=== PATIENT | female | born 1940 | race Caucasian/White ===

== ENCOUNTER 2023-05-21 12:02 | Inpatient (IN) | payer MEDICARE, OTHER, SELFPAY ==
[2023-05-21] VITALS (18 sets, daily range): BP systolic 98–176; BP diastolic 49–117; PULSE 66–156; RESP 14–24; TEMP 35.7–36.7; O2SAT 95–98; BMI 27.3; BMI 28.8
--- NOTE | 2023-05-21 12:25 | EDS_ITS ---
HPI History of Present Illness Chief Complaint: Palpitations Detail of Chief Complaint: Shortness of breath Informant: patient Onset/Context/Timing Onset: Weeks Narrative Narrative: Patient presents from PCPs office secondary to new onset A-fib. Patient went to the office today because she needs medication refills and reports that she has had shortness of breath for the past couple of weeks. She denies chest pain or palpitations. She was found to have new onset atrial fibrillation of the office and sent to the emergency room for further evaluation. Paperwork sent from the office indicates that they sent refills of her amlodipine, chlorthalidone, and potassium chloride to the pharmacy for her. Patient is reportedly on Toprol XL 200 mg but does not know if she took it this morning or if she is out of it. [facility] Medical History (Updated 05/21/23 @ 13:[address] Sherin Hawkins MD) Chronic ITP (idiopathic thrombocytopenia) High cholesterol Hypertension Osteoarthritis Secondary polycythemia Allergy/AdvReac Type Severity Reaction Status Date / Time No Known Allergies Allergy Verified 05/21/23 12:03 Social History Smoking Status: Never smoker ROS ROS ED Constitutional Constitutional ED: Denies chills or fever(s) Eyes Eyes: Denies discharge from eye(s) ENT ENT ED: Denies discharge from eye(s), rhinorrhea or sore throat Cardiovascular Cardiovascular: Denies chest pain Respiratory/Chest Respiratory/Chest: Reports dyspnea; Denies cough Gastrointestinal Gastrointestinal: Denies abdominal pain, nausea or vomiting Genitourinary Genitourinary ED: Denies dysuria Musculoskeletal Musculoskeletal: Denies back pain or extremity pain Integumentary Denies Abrasions or rash Neurologic Neurologic: Denies headache(s) or weakness Psychiatric Psychiatric: Denies anxiety or depression Allergic/Immunologic Allergic/Immunologic ED: Denies lip swelling or urticaria EXAM Physical Exam Const Vital Signs: 05/21/23 12:03 05/21/23 12:22 05/21/23 12:22 Temperature 96.2 F L Temperature Source Temporal Pulse Rate 129 H 156 H Respiratory Rate 14 16 Respiratory Effort Normal Blood Pressure 142/100 H 142/85 H Blood Pressure Mean 114 104 Pulse Ox 96 98 Oxygen Delivery Method Room Air Room Air Positive well nourished and well developed General Appearance ED: well developed HEENT Reports moist mucous membranes Eyes EOMs intact bilaterally Neck no lymphadenopathy Chest Wall inspection of chest normal and palpation of chest normal Resp normal respiratory effort and clear to auscultation bilaterally Cardio Rate: tachycardic Rhythm: abnormal rhythm irregularly irregular GI non-tender Extremity Extremity Narrative: 1+ bilateral lower extremity edema, symmetric. Neuro oriented x3 and no sensory deficits noted Motor Exam: strength 5/5 throughout Psych mental status grossly normal Skin no rashes or lesions noted MDM MDM MDM Narrative Medical decision making narrative: Patient placed on supervisor bottle machines. IV line initiated. EKG obtained to evaluate for cardiac arrhythmia/ischemia. Labwork obtained to evaluate for leukocytosis, anemia, and electrolyte derangement. Chest x-ray obtained to evaluate for acute lung pathology, cardiac size, or mediastinal abnormality. Patient given IV Cardizem for rate control. History & Record Review Discussion w/independent historian: Patient and Significant other Lab Data Attestation: I reviewed the patient's lab results. Labs: Laboratory Results - last 24 hr 05/21/23 12:27 WBC 12.6 H RBC 6.24 H Hgb 17.8 H Hct 50.8 H MCV 81.4 MCH 28.5 MCHC 35.0 RDW Std Deviation 41.5 RDW Coeff of Prince 14.2 Plt Count 158 MPV 10.7 Immature Gran % (Auto) 0.700 Neut % (Auto) 71.7 H Lymph % (Auto) 13.2 L [place] % (Auto) 13.0 H Eos % (Auto) 0.6 Baso % (Auto) 0.8 Absolute Neuts (auto) 9.0 H Absolute Lymphs (auto) 1.66 Nucleated RBC % 0 Differential Comment COMMENT Diff Path Review May foll Sodium 132 L Potassium 2.3 L* Chloride 93 L Carbon Dioxide 27.0 Anion Gap 12 BUN 12 Creatinine 1.04 H Estim Creat Clear Calc 31.28 Est GFR (MDRD) Af Amer 65 Est GFR (MDRD) Non-Af 54 L BUN/Creatinine Ratio 11.5 Glucose 139 H Calcium 10.0 Troponin I High Sens 27 B-Natriuretic Peptide 139.5 H Radiography Chest X-Ray - ED: 1 View, Read by ED Physician and Chronic Changes Diagnostic Testing: Clinical Impression(s) from Imaging Studies Chest X-Ray 05/21/23 12:26 IMPRESSION: No radiographic evidence of acute cardiopulmonary disease. Electronically Signed: Conner Bailey MD at 13:23 EST , EKG Initial EKG: Attestation: I personally reviewed and interpreted this EKG as follows: Interpretation: Atrial Fibrillation (A-fib RVR with ventricular rate of 175. Anterior precordial leads reveal slight ST depression.) Follow-up EKG: Attestation: I personally reviewed and interpreted this EKG as follows: Interpretation: Atrial Fibrillation (A-fib RVR with ventricular rate of 117. ST depression in the anterior precordial leads is still present, however improved with rate control.) Treatment and Re-Evaluation :: CBC was a white count 12.6 with a hemoglobin of 17.8. Patient has a history of secondary polycythemia. Platelet count is 158,000. Chemistry studies reveal a sodium of 132 with a potassium of 2.3. Troponin is normal at 27 with a BNP of 139. Portable chest x-ray per my interpretation reveals chronic changes with no focal infiltrate. After initial 10 mg of IV Cardizem heart rate improved to around 100. As I am talking to patient about her test results heart rate is increasing again to the 120s to 140s. She will be given a second dose of Cardizem as well as p.o. potassium replacement. I will speak with hospitalist regarding admission. Patient will be given a dose of p.o. Eliquis for anticoagulation. Discharge Plan Triage Chief Complaint: Palpitations ED Provider: Sherin Hawkins Dx/Rx/DC Orders Clinical Impression: Atrial fibrillation, new onset, Atrial fibrillation with rapid ventricular response, Hypokalemia Disposition Disposition: Acute Care [facility]
--- NOTE | 2023-05-21 12:26 | RAD_ITS ---
EXAM: XR CHEST, 1 VIEW CLINICAL INDICATION: palpitations TECHNIQUE: Frontal view of the chest. COMPARISON: No relevant prior studies available. FINDINGS: LUNGS AND PLEURAL SPACES: Unremarkable. No consolidation or edema. No pneumothorax. No effusion. HEART: Unremarkable. Cardiac silhouette not enlarged. MEDIASTINUM: Central airways and mediastinal contour are unremarkable. BONES/JOINTS: Unremarkable. No acute fracture. SOFT TISSUES: Unremarkable. RAD/Chest 1 View (Portable) IMPRESSION: No radiographic evidence of acute cardiopulmonary disease. Electronically Signed: Conner Bailey MD at 13:23 EST ,
[2023-05-21] MEDS: dilTIAZem 25 MG/5 ML Vial 10 MG IV BOLUS ×2 (12:32→13:57)
[2023-05-21 12:54] LABS: Absolute Lymphocyte Count 1.66 X10^3/uL (0.83-4.51); Basophil% 0.8 % (0-1); Eosinophil# 0.07 X10^3/uL; Eosinophils% 0.6 % (0-5); Hematocrit 50.8 % (37-47); Hemoglobin 17.8 g/dL (12.0-15.0); Lymphocyte # 1.66 X10^3/ul (0.83-4.51); Lymphocyte % 13.2 % (19-41); Mean Corpuscular Hgb 28.5 pg (27.0-32.0); Mean Corpuscular Volume 81.4 fL (81-99); Mean Platelet Vol. 10.7 fl (6.2-12.0); Monocyte# 1.64 X10^3/uL; NRBC Flagged by Analyzer 0 % (0-5); Neutrophil # 9.03 X10^3/uL (2.7-7.7); Neutrophil % 71.7 % (47-70); POSITIVE DIFFERENTIAL YES; Platelet Count 158 K/mm3 (150-450); RBC Distribution Width CV 14.2 % (11.6-14.6); RBC Distribution Width SD 41.5 fl (35.1-43.9); Red Blood Count 6.24 M/mm3 (4.2-5.4); White Blood Count 12.6 K/mm3 (4.4-11.0)
[2023-05-21 13:03] LABS: Differential Indicated SCAN CRITERIA MET
[2023-05-21 13:16] LABS: Anion Gap 12 (5-15); BUN 12 mg/dL (7-18); BUN/Creat Ratio 11.5 RATIO (10-20); Chloride 93 mmol/L (98-107); Creatinine, Serum 1.04 mg/dL (0.55-1.02); EST Glomerular Filtration Rate 54 mL/min (>60); Est Glom Filt Rate - Afr Amer 65 mL/min (>60); Estimated Creatinine Clearance 31.28 ml/min; Glucose 139 mg/dL (74-106); Potassium 2.3 mmol/L (3.5-5.1); Sodium Level 132 mmol/L (136-145); Troponin-I HS 27 pg/mL (3.0-54.0)
[2023-05-21 13:24] LABS: BNP,B-Type NATRIURETIC PEPTIDE 139.5 pg/mL (0-100)
[2023-05-21] MEDS: Potassium Chloride Oral Tablet 20 MEQ 40 MEQ PO (13:57)
[2023-05-21] MEDS: APIXABAN 5 MG TABLET PO ×2 (13:57→20:44)
[2023-05-21] MEDS: Diltiazem 125 MG in Dextrose 5%-Water (100mL Bag) 100 ML CONT INF (14:27)
--- NOTE | 2023-05-21 15:14 | PCM.HP.STD ---
HPI - General General Date of Admission: 05/21/23 Date of Service: 05/21/23 Chief Complaint: SOB HPI Narrative PILAR AMOS, is a 83F history of hypertension unclear compliance with medications presented to [facility] 05/21/2023 at the urging of her PCP for A-fib with RVR. She presented to her PCP today just for medication refills but then reported she has been short of breath for 2 weeks, EKG in the office revealed heart rate of 170s which is new and patient sent to ED. In ED potassium was low at 2.3 and heart rate was still in RVR, given Cardizem x2, unclear if patient has been taking her metoprolol succinate 200 mg daily as she was unsure. Due to heart rates persistently elevated she was started on Cardizem drip and hospitalist contacted for admission. Patient accompanied with at bedside however patient and are poor historians and patient reluctant to engage. She has been out of 1 or more medications for at least a couple days but inconsistent in how long she has been out in which when she is out of so it is unclear if she took her metoprolol though said that she did. May have had some shortness of breath off and on for the past couple weeks and said then though that it would last minutes at a time, denied any palpitations or feeling her heart racing fast, denied any cough, denied any chest pain. Patient denied any other complaints and has no present complaints at this time. did report she is had worsening memory over time but had no other specific concerns. [facility] Medical History (Updated 05/21/23 @ 13:[address] Sherin Hawkins MD) Chronic ITP (idiopathic thrombocytopenia) High cholesterol Hypertension Osteoarthritis Secondary polycythemia Home Medications amlodipine 2.5 mg tablet 2.5 mg PO DAILY BLOOD PRESSURE 05/21/23 [History Last Taken Unknown] chlorthalidone 25 mg tablet 25 mg PO DAILY BLOOD PRESSURE 05/21/23 [History Last Taken Unknown] metoprolol succinate 200 mg tablet,extended release 24 hr 200 mg PO DAILY BLOOD PRESSURE 05/21/23 [History Last Taken Unknown] potassium chloride 10 mEq tablet,extended release 10 meq PO DAILY SUPPLEMENT 05/21/23 [History Last Taken Unknown] Allergy/AdvReac Type Severity Reaction Status Date / Time No Known Allergies Allergy Verified 05/21/23 12:03 Social History Smoking Status: Never smoker ROS ROS Narrative General: Denies fever/chills HENT: Denies headache, denies stuffy nose, denies sore throat EYES: Denies changes in vision Resp: Denies cough, did have some intermittent shortness of breath Cardiac: Denies chest pain GI: Denies abdominal pain, denies changes in bowel, denies nausea/vomiting : Denies changes in urination Extremity: Denies swelling MSK: Denies weakness Neuro: Denies any numbness/tingling Heme: Denies any bleeding or bruising Skin: Denies rashes Psychiatric: No complaints voiced Vital Signs Vital Signs Vital Signs: 05/21/23 12:03 05/21/23 12:22 05/21/23 12:22 Temperature 96.2 F L Temperature Source Temporal Pulse Rate 129 H 156 H Respiratory Rate 14 16 Respiratory Effort Normal Blood Pressure 142/100 H 142/85 H Blood Pressure Mean 114 104 Pulse Ox 96 98 Oxygen Delivery Method Room Air Room Air 05/21/23 14:08 05/21/23 14:27 Temperature Temperature Source Pulse Rate 109 H 108 H Respiratory Rate 19 H 16 Respiratory Effort Blood Pressure 116/91 H 132/114 H Blood Pressure Mean 99 120 Pulse Ox Oxygen Delivery Method Room Air Weight Weight: 67.7 kg Body Mass Index (BMI) 27.3 Physical Exam Narrative General: Alert, oriented, no apparent distress HEENT: Atraumatic, normocephalic Eyes: Anicteric, normal conjunctiva, extraocular movements grossly intact Neck: Supple Respiratory: Clear to auscultation bilaterally, normal respiratory effort Cardiovascular: Low-grade tachycardia on Cardizem drip, irregularly irregular GI: Soft, nontender, nondistended Extremities: No edema Musculoskeletal: Moving all extremities Neuro: No overt focal neurological deficits Skin: No rashes appreciated Psych: Cooperative Results Lab / Micro Data 05/21/23 12:27 05/21/23 12:27 Labs: Laboratory Results - last 24 hr 05/21/23 12:27: WBC 12.6 H, RBC 6.24 H, Hgb 17.8 H, Hct 50.8 H, MCV 81.4, MCH 28.5, MCHC 35.0, RDW Std Deviation 41.5, RDW Coeff of Prince 14.2, Plt Count 158, MPV 10.7, Immature Gran % (Auto) 0.700, Neut % (Auto) 71.7 H, Lymph % (Auto) 13.2 L, [place] % (Auto) 13.0 H, Eos % (Auto) 0.6, Baso % (Auto) 0.8, Absolute Neuts (auto) 9.0 H, Absolute Lymphs (auto) 1.66, Nucleated RBC % 0, Differential Comment COMMENT, Diff Path Review May foll, Sodium 132 L, Potassium 2.3 L*, Chloride 93 L, Carbon Dioxide 27.0, Anion Gap 12, BUN 12, Creatinine 1.04 H, Estim Creat Clear Calc 31.28, Est GFR (MDRD) Af Amer 65, Est GFR (MDRD) Non-Af 54 L, BUN/Creatinine Ratio 11.5, Glucose 139 H, Calcium 10.0, Troponin I High Sens 27, B-Natriuretic Peptide 139.5 H Imagaing Radiology Impression Chest X-Ray 05/21/23 12:26 IMPRESSION: No radiographic evidence of acute cardiopulmonary disease. Electronically Signed: Conner Bailey MD at 13:23 EST , Assessment & Plan Assessment/Plan (1) Atrial fibrillation with rapid ventricular response: (2) Hypokalemia: PLAN: Plan #Afib w/ rvr -Given cardizem x2 in ED with heart rate increasing again after initially responding -Will place on cardizem gtt -Eliquis started in ED -Will order echo -Replace electrolytes -Unclear if patient has been taking her metoprolol as she and report that she has been however then said she has been out of a couple of her medicines but was unable to tell me exactly which ones and account of this changed each time I asked the question -We will monitor heart rate and Cardizem, will resume home metoprolol as I do suspect there is a compliance component to this, may need addition of p.o. Cardizem pending response to treatment, replacement of electrolytes, and echocardiogram -Given elevated hemoglobin may also have undiagnosed sleep apnea and may need outpatient sleep study #HTN -Continue metoprolol -On Cardizem drip at present, holding home amlodipine -Given electrolyte derangements holding home chlorthalidone #hypokalemia -Given 40meq in ED -Holding chlorthalidone -Given K was 2.3 will additionally give further IV replacement and recheck #hyponatremia -Unclear chronicity, hold chlorthalidone -Will recheck BMP d/t recheck of potassium #reny vs ckd IIIa -Cr 1.04, unclear baseline -Supportive care #DVT ppx: Candis Garner MD Time spent in the patient's overall evaluation,decision-making process, review of diagnostic data, adjustment of management, discussion with other providers, nursing nursing and ancillary staff involved in patient's care documentation, 55 minutes Charges/Coding Visit Charges Inpatient E&M: 88856 Init Hosp L2
--- NOTE | 2023-05-21 15:48 | ECHOD_ITS ---
Reason For Study: ATRIAL FIBRILLATION Procedure This was a 2D Doppler, Color Flow transthoracic echocardiogram. Exam performed portable in patient room. Left Ventricle Mild concentric left ventricular hypertrophy. Normal LV size. The left ventricular ejection fraction is 65 %. Unable to assess diastolic dysfunction due to arrhythmia. Right Ventricle Normal right ventricle. Atria The left atrium is moderately enlarged. The right atrium is mildly enlarged. Mitral Valve There is Moderate focal posterior mitral annular calcification. Mild (1+) mitral valve insufficiency. Tricuspid Valve Moderate (2+) tricuspid valve insufficiency. Right ventricular systolic pressure estimated to be 41 mmHg. Aortic Valve Aortic sclerosis, no stenosis. Mild (1+) aortic valve insufficiency. Pulmonic Valve The pulmonic valve is not well visualized. Trivial pulmonic valve insufficiency. Great Vessels Normal sized aortic root. Pericardium/Pleural No pericardial effusion. MMode/2D Measurements & Calculations LVIDd: 3.7 cm IVSd: 1.3 cm LVOT diam: 1.9 cm LVIDs: 2.5 cm LVPWd: 0.91 cm LVOT area: 2.7 cm2 RVDd: 2.6 cm FS: 33.8 % Ao root diam: 3.5 cm LAV(MOD-bp): 40.4 ml LVAd ap4: 14.3 cm2 LAV(MOD-bp) Indexed: 24.0 ml/m2 LVLd ap4: 5.7 cm LAV(MOD-sp2): 46.3 ml EDV(MOD-sp4): 29.8 ml LAV(MOD-sp4): 35.8 ml EDV(sp4-el): 30.4 ml LVAs ap4: 7.9 cm2 LVLs ap4: 5.1 cm ESV(MOD-sp4): 10.7 ml ESV(sp4-el): 10.5 ml EF(MOD-sp4): 64.0 % EF(sp4-el): 65.4 % LVAd ap2: 14.8 cm2 SV(MOD-sp4): 19.1 ml SV(MOD-sp2): 21.2 ml LVLd ap2: 5.7 cm EDV(MOD-sp2): 32.3 ml EDV(sp2-el): 32.5 ml LVAs ap2: 8.1 cm2 LVLs ap2: 5.2 cm ESV(MOD-sp2): 11.0 ml ESV(sp2-el): 10.5 ml EF(MOD-sp2): 65.8 % SV(sp4-el): 19.9 ml LA dimension(2D): 3.7 cm LA A4 area: 15.3 cm2 RA A4 area: 13.2 cm2 TAPSE: 1.9 cm Time Measurements MV dec time: 0.17 sec Doppler Measurements & Calculations MV E max venkata: 110.0 cm/sec Lat Peak E' Venkata: 8.4 cm/sec Med Peak E' Venkata: 8.2 cm/sec E/E' lat: 13.1 E/E' med: 13.3 Ao V2 max: 144.8 cm/sec LV V1 max: 82.0 cm/sec SV(LVOT): 46.3 ml Ao max P.4 mmHg LV V1 max P.7 mmHg Ao V2 mean: 101.4 cm/sec LV V1 mean P.4 mmHg Ao mean P.6 mmHg LV V1 mean: 54.4 cm/sec Ao V2 VTI: 27.3 cm LV V1 VTI: 16.9 cm AV (velocity ratio): 0.62 SUSIE(I,D): 1.7 cm2 SUSIE(V,D): 1.5 cm2 PA V2 max: 65.5 cm/sec TR max venkata: 256.4 cm/sec PA max PG (full): 0.54 mmHg TR max P.3 mmHg ECHO/Echo Complete Interpretation Summary Mild concentric left ventricular hypertrophy. The left ventricular ejection fraction is 65 %. The left atrium is moderately enlarged. Mild (1+) mitral valve insufficiency. Moderate (2+) tricuspid valve insufficiency. Right ventricular systolic pressure estimated to be 41 mmHg. Aortic sclerosis, no stenosis. Mild (1+) aortic valve insufficiency. Ordering Physician: Jacque Garner Performed By: Kassandra Chase RDCS
[2023-05-21 16:16] LABS: Magnesium 2.1 mg/dL (1.6-2.6)
[2023-05-21] MEDS: Metoprolol(XL)Succ 200 MG Tablet PO (16:52)
[2023-05-21] MEDS: Potassium Chloride 10mEq/100mL 10 MEQ/100 ML IV.SOLN. 100 MEQ IV BOLUS ×2 (16:52→18:02)
[2023-05-21] MEDS: 0.9% Normal Saline (250mL Bag) 250 ML 15 ML IV (16:53)
[2023-05-21 21:20] LABS: Anion Gap 7 (5-15); BUN 13 mg/dL (7-18); BUN/Creat Ratio 12.5 RATIO (10-20); Calcium,Total 9.6 mg/dL (8.5-10.1); Chloride 96 mmol/L (98-107); Creatinine, Serum 1.04 mg/dL (0.55-1.02); EST Glomerular Filtration Rate 54 mL/min (>60); Est Glom Filt Rate - Afr Amer 65 mL/min (>60); Estimated Creatinine Clearance 31.28 ml/min; Glucose 137 mg/dL (74-106); Sodium Level 134 mmol/L (136-145)
[2023-05-22] VITALS (24 sets, daily range): BP systolic 78–151; BP diastolic 45–137; PULSE 58–80; RESP 15–21; TEMP 36.4–36.6; O2SAT 93–98; BMI 28.9
[2023-05-22] MEDS: Potassium Chloride Oral Tablet 20 MEQ 40 MEQ PO ×2 (00:02→01:55)
[2023-05-22] MEDS: Diltiazem 125 MG in Dextrose 5%-Water (100mL Bag) 100 ML 10 MG CONT INF (01:56)
[2023-05-22 07:30] LABS: Absolute Lymphocyte Count 2.36 X10^3/uL (0.83-4.51); Eosinophil# 0.22 X10^3/uL; Eosinophils% 2.1 % (0-5); Hematocrit 45.9 % (37-47); Hemoglobin 15.5 g/dL (12.0-15.0); Lymphocyte # 2.36 X10^3/ul (0.83-4.51); Lymphocyte % 22.7 % (19-41); Mean Corp Hgb Conc 33.8 g/dL (32-36); Mean Corpuscular Hgb 28.3 pg (27.0-32.0); Mean Corpuscular Volume 83.8 fL (81-99); Mean Platelet Vol. 10.5 fl (6.2-12.0); Monocyte# 1.59 X10^3/uL; Monocyte% 15.3 % (0-10); NRBC Flagged by Analyzer 0 % (0-5); Neutrophil # 6.04 X10^3/uL (2.7-7.7); Neutrophil % 58.2 % (47-70); POSITIVE DIFFERENTIAL YES; Platelet Count 141 K/mm3 (150-450); RBC Distribution Width CV 14.3 % (11.6-14.6); RBC Distribution Width SD 43.6 fl (35.1-43.9); Red Blood Count 5.48 M/mm3 (4.2-5.4); White Blood Count 10.4 K/mm3 (4.4-11.0)
[2023-05-22 07:33] LABS: Differential Indicated SCAN CRITERIA MET
[2023-05-22 08:08] LABS: Anion Gap 6 (5-15); BUN 14 mg/dL (7-18); BUN/Creat Ratio 15.7 RATIO (10-20); Calcium,Total 9.1 mg/dL (8.5-10.1); Chloride 101 mmol/L (98-107); Cholesterol 154 mg/dL (200); Creatinine, Serum 0.89 mg/dL (0.55-1.02); EST Glomerular Filtration Rate 64 mL/min (>60); Est Glom Filt Rate - Afr Amer 77 mL/min (>60); Estimated Creatinine Clearance 36.55 ml/min; Glucose 118 mg/dL (74-106); High Density Lipoprotein 32 mg/dL; Magnesium 2.2 mg/dL (1.6-2.6); Potassium 3.5 mmol/L (3.5-5.1); Sodium Level 135 mmol/L (136-145); Thyroid Stim Hormone (TSH) 2.02 uIU/mL (0.358-3.74); Triglycerides 210 mg/dL; Very Low Density Lipoprotein 42 mg/dL (5-40)
[2023-05-22] MEDS: APIXABAN 5 MG TABLET PO ×2 (10:45→20:58)
--- NOTE | 2023-05-22 10:56 | PN.HOSP_ITS ---
Subjective Subjective Doing well, denies any chest pain. Had her echo this morning. Currently she is still in A-fib but is rate controlled in the 70s Objective Data Objective Data Vital Signs: Vital Signs Temp Pulse Resp BP Pulse Ox O2 Del Method 97.6 F L 67 18 95/59 L 98 Room Air 05/22/23 07:41 05/22/23 07:41 05/22/23 07:41 05/22/23 07:41 05/22/23 07:41 05/22/23 07:48 Oxygen Delivery Method Room Air Weight: 158 lb 4.67 oz Body Mass Index (BMI) 28.9 Intake & Output: Intake and Output for Last 24 Hours 05/21/23 05/22/23 05/23/23 03:59 03:59 03:59 Intake Total 818.66 / 828.66 34.67 / 34.67 Balance 818.66 / 828.66 34.67 / 34.67 Lab / Micro Data 05/22/23 06:55 05/22/23 06:55 Labs: Laboratory Results - last 24 hr 05/21/23 12:27: WBC 12.6 H, RBC 6.24 H, Hgb 17.8 H, Hct 50.8 H, MCV 81.4, MCH 28.5, MCHC 35.0, RDW Std Deviation 41.5, RDW Coeff of Prince 14.2, Plt Count 158, MPV 10.7, Immature Gran % (Auto) 0.700, Neut % (Auto) 71.7 H, Lymph % (Auto) 13.2 L, [place] % (Auto) 13.0 H, Eos % (Auto) 0.6, Baso % (Auto) 0.8, Absolute Neuts (auto) 9.0 H, Absolute Lymphs (auto) 1.66, Nucleated RBC % 0, Differential Comment COMMENT, Diff Path Review October foll, Sodium 132 L, Potassium 2.3 L*, Chloride 93 L, Carbon Dioxide 27.0, Anion Gap 12, BUN 12, Creatinine 1.04 H, Estim Creat Clear Calc 31.28, Est GFR (MDRD) Af Amer 65, Est GFR (MDRD) Non-Af 54 L, BUN/Creatinine Ratio 11.5, Glucose 139 H, Calcium 10.0, Magnesium 2.1, Troponin I High Sens 27, B-Natriuretic Peptide 139.5 H 11/21/23 20:40: Sodium 134 L, Potassium 3.0 L, Chloride 96 L, Carbon Dioxide 31.0, Anion Gap 7, BUN 13, Creatinine 1.04 H, Estim Creat Clear Calc 31.28, Est GFR (MDRD) Af Amer 65, Est GFR (MDRD) Non-Af 54 L, BUN/Creatinine Ratio 12.5, Glucose 137 H, Calcium 9.6 05/22/23 06:55: WBC 10.4, RBC 5.48 H, Hgb 15.5 H, Hct 45.9, MCV 83.8, MCH 28.3, MCHC 33.8, RDW Std Deviation 43.6, RDW Coeff of [place] 14.3, Plt Count 141 L, MPV 10.5, Immature Gran % (Auto) 0.700, Neut % (Auto) 58.2, Lymph % (Auto) 22.7, [place] % (Auto) 15.3 H, Eos % (Auto) 2.1, Baso % (Auto) 1.0, Absolute Neuts (auto) 6.0, Absolute Lymphs (auto) 2.36, Nucleated RBC % 0, Differential Comment COMMENT, Sodium 135 L, Potassium 3.5, Chloride 101, Carbon Dioxide 28.0, Anion Gap 6, BUN 14, Creatinine 0.89, Estim Creat Clear Calc 36.55, Est GFR (MDRD) Af Amer 77, Est GFR (MDRD) Non-Af 64, BUN/Creatinine Ratio 15.7, Glucose 118 H, Calcium 9.1, Magnesium 2.2, Triglycerides 210 H, Cholesterol 154, LDL Cholesterol 80, VLDL Cholesterol 42 H, HDL Cholesterol 32 L, TSH 2.02 Radiography Diagnostic Testing: Radiology Impression Chest X-Ray 05/21/23 12:26 IMPRESSION: No radiographic evidence of acute cardiopulmonary disease. Electronically Signed: Conner Bailey MD at 13:23 EST , Physical Exam Narrative General: Alert, Oriented x3, Cooperative, No apparent distress HEENT: Atraumatic, PERRLA, EOMI, Normocephalic Oral: Moist Mucosa Neck: Supple, No JVD Lungs: Diminished, normal air movement, No rhonchi, No wheeze, No rales Cardiovascular: Regular rate, irregular rhythm, Normal S1, Normal S2, No murmurs Abdomen: Soft, Non Tender, Non-Distended, No Hepato-splenomegaly Extremities: No edema, Capillary Refill Less than 3 Seconds Skin: No rashes, No breakdown Musculoskeletal: No Tenderness to Palpation of Joints or Extremities Neurological: Cranial nerves II-XII grossly intact, Motor Exam 5/5 strength throughout, Sensory exam intact to light touch and pain Psych/Mental Status: Normal Affect, Appropriate Assessment & Plan Assessment/Plan (1) Atrial fibrillation with rapid ventricular response: (2) Hypokalemia: PLAN: Plan 1. A-fib with RVR/HTN ? Heart rate is now normal but she is still periodically in A-fib ? Continue with her home metoprolol as well as Cardizem drip ? Currently on Eliquis given her age and her A-fib ? We will consult cardiology as she is rate controlled but still in A-fib rhythm as to whether they would prefer amiodarone versus digoxin ? Echo is pending ? Blood pressures are stable ? She does not have SYMONE or CKD DVT: Eliquis Charges/Coding Visit Charges Inpatient E&M: 07254 Subs Hosp L2
--- NOTE | 2023-05-22 11:10 | CASEMGMT ---
RN ROYA Face to Face with patient for initial transition planning/care coordination assessment. RN CM introduced self and role at [facility]. Patient lying in bed, alert and oriented. Patient willing to participate in assessment and is able to answer all questions appropriately. Care providers, pharmacy, and demographics verified. Patient wishes to discharge home, denies need for home health at this time. Patient states she has no further needs or concerns at this time. CM to follow for discharge planning needs that may arise. PCP: Cris Specialists: none Preferred Pharmacy: [facility] Insurance: [employer] Prescription Benefit: yes Living Will/HPOA: none LNOK: daughter Living Arrangements: Patient lives with in a 2 story home with bed and bath on first floor. Patient states she is independent at home. Transportation: self, DME/HHC: Patient has raised toilet, cane, walker at home. No previous HHC or SNF. Disposition Plan: Patient to discharge home with family support and follow-up plans in place. Suzi ALFARO, RN, CM
[2023-05-22] MEDS: Metoprolol(XL)Succ 200 MG Tablet PO (11:59)
--- NOTE | 2023-05-22 13:41 | PCM.CONS.C ---
Assessment & Plan Assessment/Plan (1) Atrial fibrillation, new onset: PLAN: SwitchVentricular rate controlled with beta-blockers. On diltiazem infusion. To p.o. Agree. Check echocardiogram. Risk of thromboembolism with atrial fibrillation discussed with the patient, her and daughter. Recommended chronic oral anticoagulation. Risks and benefit explained. Particularly emphasis was given to the risk of bleeding with falls. They understand these and agreed to start on anticoagulation. (2) Hypertension: PLAN: Beta-blockers, diltiazem. Monitor. PLAN: Plan If the heart rate was controlled in the morning with p.o. diltiazem and beta-blockers, then may discharge home. Further follow-up as outpatient. HPI Consult Data Date of Consult: 05/22/23 HPI Narrative Reason for Consultation: Atrial fibrillation HPI Narrative: This lady has past medical history significant for hypertension. She was referred from her primary care physician's office where she was discovered to have an irregular heartbeat. ECG showed atrial fibrillation with rapid ventricular response. Patient denies any previous cardiac history. Denies any palpitations. Denies any chest pains or shortness of breath. No orthopnea or PND. No ankle edema. Patient denies any bleeding disorders. According to her, she fell in her basement about 2 months ago. No history of intracranial bleed. [facility] Medical History (Updated 05/22/23 @ 13:[address] Jordan Peterson MD) Atrial fibrillation Chronic ITP (idiopathic thrombocytopenia) High cholesterol Hypertension Non-smoker Osteoarthritis Secondary polycythemia Home Medications amlodipine 2.5 mg tablet 2.5 mg PO DAILY BLOOD PRESSURE 05/21/23 [History Last Taken Unknown] chlorthalidone 25 mg tablet 25 mg PO DAILY BLOOD PRESSURE 05/21/23 [History Last Taken Unknown] metoprolol succinate 200 mg tablet,extended release 24 hr 200 mg PO DAILY BLOOD PRESSURE 05/21/23 [History Last Taken Unknown] potassium chloride 10 mEq tablet,extended release 10 meq PO DAILY SUPPLEMENT 05/21/23 [History Last Taken Unknown] Allergy/AdvReac Type Severity Reaction Status Date / Time No Known Allergies Allergy Verified 05/21/23 12:03 Social History Smoking Status: Never smoker Physical Exam Narrative Comfortable. No apparent distress. Heart sounds 1 and 2 noted. Irregularly irregular. Chest clear to auscultation bilaterally. Alert oriented. No ankle edema noted. Risk Stratification Risk Stratification Applicable: No Objective Data Vital Signs: Vital Signs Temp Pulse Resp BP Pulse Ox O2 Del Method 97.8 F 75 18 126/111 H 96 Room Air 05/22/23 12:05 05/22/23 13:00 05/22/23 13:00 05/22/23 13:00 05/22/23 13:00 05/22/23 13:00 Oxygen Delivery Method Room Air Weight: 158 lb 4.67 oz Body Mass Index (BMI) 28.9 Intake & Output: Intake and Output for Last 24 Hours 05/20/23 05/21/23 05/22/23 23:59 23:59 23:59 Intake Total 778.66 / 788.66 721.26 / 721.26 Balance 778.66 / 788.66 721.26 / 721.26 Lab / Micro Data 05/22/23 06:55 05/22/23 06:55 Labs: Laboratory Results - last 24 hr 05/21/23 12:27: Magnesium 2.1 05/21/23 20:40: Sodium 134 L, Potassium 3.0 L, Chloride 96 L, Carbon Dioxide 31.0, Anion Gap 7, BUN 13, Creatinine 1.04 H, Estim Creat Clear Calc 31.28, Est GFR (MDRD) Af Amer 65, Est GFR (MDRD) Non-Af 54 L, BUN/Creatinine Ratio 12.5, Glucose 137 H, Calcium 9.6 05/22/23 06:55: WBC 10.4, RBC 5.48 H, Hgb 15.5 H, Hct 45.9, MCV 83.8, MCH 28.3, MCHC 33.8, RDW Std Deviation 43.6, RDW Coeff of [place] 14.3, Plt Count 141 L, MPV 10.5, Immature Gran % (Auto) 0.700, Neut % (Auto) 58.2, Lymph % (Auto) 22.7, [place] % (Auto) 15.3 H, Eos % (Auto) 2.1, Baso % (Auto) 1.0, Absolute Neuts (auto) 6.0, Absolute Lymphs (auto) 2.36, Nucleated RBC % 0, Differential Comment COMMENT, Sodium 135 L, Potassium 3.5, Chloride 101, Carbon Dioxide 28.0, Anion Gap 6, BUN 14, Creatinine 0.89, Estim Creat Clear Calc 36.55, Est GFR (MDRD) Af Amer 77, Est GFR (MDRD) Non-Af 64, BUN/Creatinine Ratio 15.7, Glucose 118 H, Calcium 9.1, Magnesium 2.2, Triglycerides 210 H, Cholesterol 154, LDL Cholesterol 80, VLDL Cholesterol 42 H, HDL Cholesterol 32 L, TSH 2.02 Cardiology Labs/Tests 05/21/23 12:27: Magnesium 2.1 05/21/23 20:40: Sodium 134 L, Potassium 3.0 L, Chloride 96 L, Carbon Dioxide 31.0, Anion Gap 7, BUN 13, Creatinine 1.04 H, Est GFR (MDRD) Af Amer 65, Est GFR (MDRD) Non-Af 54 L, BUN/Creatinine Ratio 12.5, Glucose 137 H, Calcium 9.6 05/22/23 06:55: WBC 10.4, RBC 5.48 H, Hgb 15.5 H, Hct 45.9, MCV 83.8, MCH 28.3, MCHC 33.8, Plt Count 141 L, MPV 10.5, Immature Gran % (Auto) 0.700, Neut % (Auto) 58.2, Lymph % (Auto) 22.7, [place] % (Auto) 15.3 H, Eos % (Auto) 2.1, Baso % (Auto) 1.0, Absolute Neuts (auto) 6.0, Nucleated RBC % 0, Sodium 135 L, Potassium 3.5, Chloride 101, Carbon Dioxide 28.0, Anion Gap 6, BUN 14, Creatinine 0.89, Est GFR (MDRD) Af Amer 77, Est GFR (MDRD) Non-Af 64, BUN/Creatinine Ratio 15.7, Glucose 118 H, Calcium 9.1, Magnesium 2.2, Triglycerides 210 H, Cholesterol 154, LDL Cholesterol 80, VLDL Cholesterol 42 H, HDL Cholesterol 32 L Rhythm: EKG: ECHO: Stress Test: Cardiac Cath: PCI: CT Surgery: Holter monitor: EPS: PPM: CXR: Chest CT Scan:
[2023-05-22] MEDS: dilTIAZem 60 MG Tablet PO ×2 (14:03→20:57)
--- NOTE | 2023-05-22 15:03 | CHAPLAIN ---
Type of Pastoral Visit _x__ Initial Visit ___ Follow-up Visit ___ On-call Visit ___ General Patient Visit ___ Spiritual Assessment ___ Family Conference ___ Bereavement ___ Rapid Response ___ Code Blue ___ Other (describe below) Pastoral Care Referral From _x__ Patient ___ Family ___ Nurse ___ Physician ___ Yeast Stacker ___ Tube Machine Operator ___ Other (describe below) Sacrament/Intervention _x__ Active listening ___ Anointing ___ Moravian ___ Bereavement ___ Communion _x__ Fay exploration ___ _x__ Life review _x__ Prayer ___ Reconciliation ___ Sacrament of Sick _x__ Supportive presence ___ Wedding ___ Other (describe below) Pastoral Comments patient is welcoming, talkative, and expressive about hopes of going home; pt states that is all new to her 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
[2023-05-22 15:05] LABS: Pathologist Review Reviewed
[2023-05-22] MEDS: 0.9% Saline Lock 10 ML Syringe IV (15:17)
--- NOTE | 2023-05-22 16:38 | CASEMGMT ---
Patient currently on Eliquis, savings card provided to patient for at discharge.
[2023-05-23 03:00] VITALS: BP 105/91; PULSE 68; RESP 18; TEMP 36.2; O2SAT 95
[2023-05-23 03:54] VITALS: BMI 28.8
[2023-05-23 05:04] VITALS: BP 108/61; PULSE 70; RESP 16; TEMP 36; O2SAT 97
[2023-05-23] MEDS: dilTIAZem 60 MG Tablet PO (05:08)
[2023-05-23 06:51] LABS: Basophil# 0.13 X10^3/uL; Basophil% 1.4 % (0-1); Eosinophil# 0.49 X10^3/uL; Eosinophils% 5.4 % (0-5); Hematocrit 45.5 % (37-47); Hemoglobin 15.2 g/dL (12.0-15.0); Lymphocyte % 23.3 % (19-41); Mean Corp Hgb Conc 33.4 g/dL (32-36); Mean Corpuscular Hgb 28.2 pg (27.0-32.0); Mean Corpuscular Volume 84.4 fL (81-99); Mean Platelet Vol. 10.6 fl (6.2-12.0); Monocyte# 1.24 X10^3/uL; Monocyte% 13.7 % (0-10); NRBC Flagged by Analyzer 0 % (0-5); Neutrophil % 55.5 % (47-70); POSITIVE COUNT YES; Platelet Count 97 K/mm3 (150-450); RBC Distribution Width CV 14.3 % (11.6-14.6); RBC Distribution Width SD 43.7 fl (35.1-43.9); Red Blood Count 5.39 M/mm3 (4.2-5.4)
[2023-05-23 06:53] LABS: Differential Indicated SCAN CRITERIA MET
[2023-05-23 07:11] LABS: Differential Comment SCANNED; Platelet Estimate SLT DEC (ADEQ)
[2023-05-23 07:47] LABS: Anion Gap 5 (5-15); BUN 13 mg/dL (7-18); BUN/Creat Ratio 18.1 RATIO (10-20); Calcium,Total 8.9 mg/dL (8.5-10.1); Chloride 102 mmol/L (98-107); Creatinine, Serum 0.72 mg/dL (0.55-1.02); EST Glomerular Filtration Rate 82 mL/min (>60); Est Glom Filt Rate - Afr Amer 99 mL/min (>60); Estimated Creatinine Clearance 32.53 ml/min; Glucose 109 mg/dL (74-106); Potassium 2.9 mmol/L (3.5-5.1); Sodium Level 135 mmol/L (136-145)
[2023-05-23 08:54] VITALS: BP 112/63; PULSE 93; RESP 14; TEMP 36.9; O2SAT 98
[2023-05-23 08:56] VITALS: BP 112/63; PULSE 93
[2023-05-23] MEDS: APIXABAN 5 MG TABLET PO (08:56)
[2023-05-23] MEDS: Metoprolol(XL)Succ 200 MG Tablet PO (08:56)
[2023-05-23] MEDS: Potassium Chloride 10mEq/100mL 10 MEQ/100 ML IV.SOLN. 100 MEQ IV BOLUS ×3 (10:11→12:24)
[2023-05-23] MEDS: Potassium Chloride Oral Tablet 20 MEQ 40 MEQ PO (10:18)
[2023-05-23 12:28] VITALS: BP 117/67; PULSE 71; RESP 14; TEMP 36.9; O2SAT 99
--- NOTE | 2023-05-23 12:28 | PCM.DC.SUM ---
Providers Date of Admission: 05/21/23 Date of Discharge: 05/23/23 Primary Care Physician: Dr. Francisco Lynch MD Consultations 05/22/23 10:56 Consult: Cardiology Routine Consulting Provider: Jordan Peterson Reason for Consult: Afib EMERGENT Consult: No MD Notified: Yes Date Notified: 05/22/23 Time Notified: 10:57 Method of Notification: Text Reason For Visit: AFIB, RVR Diagnosis Discharge Diagnosis (1) Atrial fibrillation, new onset: Status: Acute Code(s): I48.91 - Unspecified atrial fibrillation (2) Hypertension: Status: Chronic Code(s): I10 - Essential (primary) hypertension Medications at Discharge Home Medications metoprolol succinate 200 mg tablet,extended release 24 hr 200 mg PO DAILY BLOOD PRESSURE 05/21/23 apixaban 5 mg tablet (Eliquis) 5 mg PO BID #60 tabs 05/23/23 diltiazem HCl 120 mg capsule,extended release 24 hr (Cartia XT) 120 mg PO DAILY #30 caps 05/23/23 potassium chloride 20 mEq tablet,extended release(part/cryst) (Klor-Con M) 20 meq PO BIDCM #60 tabs 05/23/23 Hospital Course Procedures 2-D Echocardiogram Summary of Care Provided Minutes Spent on Discharge: 35 Hospital Course: Patient is an 83-year-old lady with past medical history single for chronic ITP, dyslipidemia essential hypertension who was sent to the ED with new onset A-fib with RVR by PCP 1. New onset A-fib with RVR ? Patient admitted to monitored bed managed with IV Cardizem later transition to p.o. Cardizem. Patient was on metoprolol discontinued was also seen in consultation by cardiology recommended initiation of systemic anticoagulation. 2D echo was obtained during hospital stay. Demonstrated EF of 65% with moderate tricuspid valve insufficiency, mild mitral valve insufficiency and mild aortic valve insufficiency. RVSP was noted to be 41 mmHg 2. Hypokalemia ? Corrected per protocol prescription written on discharge 3. Hypertension - Blood pressure controlled, home medications continued with dose adjustment as needed 4. DVT prophylaxis ? Patient was on systemic anticoagulation with apixaban Physical Exam Narrative GENERAL: cooperative HEENT: Atraumatic; normocephalic EYES; Anicteric, Normal Conjunctiva NECK; supple, normal thyroid, RESPIRATORY: Diminished to auscultation CARDIOVASCULAR: Regular S1 S2, GI: soft, normoactive bowel sounds, : No Renal angle tenderness; EXTREMITIES: No edema, no clubbing, MUSCULOSKELETAL: no muscle wasting NEURO: Awake; no lateralizing signs. SKIN: No Rash PSYCH; Flat affect Weight / BMI Weight Weight: 71.5 kg Body Mass Index (BMI) 28.8 ABG / Lab / Microbiology Data 05/23/23 06:17 05/23/23 06:17 Laboratory: Laboratory Results - last 24 hr 05/21/23 12:27: Diff Path Review Reviewed 05/23/23 06:17: WBC 9.0, RBC 5.39, Hgb 15.2 H, Hct 45.5, MCV 84.4, MCH 28.2, MCHC 33.4, RDW Std Deviation 43.7, RDW Coeff of [place] 14.3, Plt Count 97 L, MPV 10.6, Immature Gran % (Auto) 0.700, Neut % (Auto) 55.5, Lymph % (Auto) 23.3, [place] % (Auto) 13.7 H, Eos % (Auto) 5.4 H, Baso % (Auto) 1.4 H, Absolute Neuts (auto) 5.0, Absolute Lymphs (auto) 2.10, Nucleated RBC % 0, Differential Comment SCANNED, Platelet Estimate SLT DEC, Sodium 135 L, Potassium 2.9 L, Chloride 102, Carbon Dioxide 28.0, Anion Gap 5, BUN 13, Creatinine 0.72, Estim Creat Clear Calc 32.53, Est GFR (MDRD) Af Amer 99, Est GFR (MDRD) Non-Af 82, BUN/Creatinine Ratio 18.1, Glucose 109 H, Calcium 8.9 Radiography Diagnostic Testing: Radiology Impression Echocardiogram 05/21/23 15:48 Interpretation Summary Mild concentric left ventricular hypertrophy. The left ventricular ejection fraction is 65 %. The left atrium is moderately enlarged. Mild (1+) mitral valve insufficiency. Moderate (2+) tricuspid valve insufficiency. Right ventricular systolic pressure estimated to be 41 mmHg. Aortic sclerosis, no stenosis. Mild (1+) aortic valve insufficiency. Ordering Physician: Jacque Garner Performed By: Kassandra Chase RDCS D/C Instructions Discharge Diet: No restrictions Discharge Activity: Return to Normal Activity Call your doctor if you observe: Fever of 101 or Higher, Shortness of breath, Fainting spells and Chest pain Meaningful Use Info Meaningful Use Diagnoses (Choose all that apply): None applicable Discharge Plan Admission Admit Date/Time: 05/21/23 15:14 Attending Provider: Franklin Ernst Primary Care Provider: Francisco Lynch Consulting Providers: Jacque Garner; Jordan Peterson; Luis Talbert Discharge Orders/Prescriptions Prescriptions: New potassium chloride [Klor-Con M20] 20 mEq Tablet,Er Particles/Crystals 20 meq PO BIDCM Qty: 60 0RF Eliquis 5 mg Tablet 5 mg PO BID Qty: 60 0RF diltiazem HCl [Cartia XT] 120 mg capsule,extended release 24hr 120 mg PO DAILY Qty: 30 0RF Continued metoprolol succinate 200 mg tablet extended release 24 hr 200 mg PO DAILY Discontinued amlodipine 2.5 mg tablet 2.5 mg PO DAILY chlorthalidone 25 mg tablet 25 mg PO DAILY potassium chloride 10 mEq tablet extended release 10 meq PO DAILY Referrals / Follow Up: Jordan Peterson MD [Med Staff - Active Staff] - Within 2 Weeks Francisco Lynch MD [Primary Care Provider] - Within 1 Week Disposition Disposition (needs filled in before D/C Order can be placed): Home, Self Care Charges/Coding Visit Charges Inpatient E&M: 93716 Disch Hosp >30min
== END 2023-05-23 14:47 | disposition home or self-care (01) | DRG 309 ==
LOC: ED 14:12 → PCU 14:41
PROVIDERS: Family Medicine; Admitting Provider Internal Medicine; Emergency Provider Emergency Medicine; PCP Family Medicine; Visit Provider Internal Medicine
DX: I48.91 Unspecified atrial fibrillation (principal); E87.1 Hypo-osmolality and hyponatremia; I10 Essential (primary) hypertension; I08.3 Combined rheumatic disorders of mitral, aortic and tricuspid valves; G47.30 Sleep apnea, unspecified; E78.00 Pure hypercholesterolemia, unspecified; E87.6 Hypokalemia; D75.1 Secondary polycythemia
CPT/HCPCS: 36415; 71045; 80048; 80061; 83735; 83880; 84443; 84484; 85025; 93005; 93306; 94668; 97161; 99252; 99284; J7030; J7050; A4216; G0463

== ENCOUNTER → 2023-06-11 | Outpatient (CLI) | payer MEDICARE, OTHER, SELFPAY ==
[2023-06-11 15:56] LABS: Anion Gap 6 (5-15); BUN 13 mg/dL (7-18); BUN/Creat Ratio 14.4 RATIO (10-20); Calcium,Total 9.2 mg/dL (8.5-10.1); Chloride 106 mmol/L (98-107); EST Glomerular Filtration Rate 63 mL/min (>60); Est Glom Filt Rate - Afr Amer 77 mL/min (>60); Glucose 115 mg/dL (74-106); Potassium 4.3 mmol/L (3.5-5.1); Sodium Level 141 mmol/L (136-145)
== END | disposition home or self-care (01) ==
LOC: LAB 15:17
PROVIDERS: PCP Family Medicine; Referring Provider Nurse Practitioner Family; Visit Provider Nurse Practitioner Family
DX: E87.6 Hypokalemia (principal)
CPT/HCPCS: 36415; 80048

== ENCOUNTER → 2023-09-18 | Outpatient (CLI) | payer MEDICARE, OTHER, SELFPAY ==
[2023-09-18 15:15] LABS: Hematocrit 50.3 % (37-47); Hemoglobin 16.2 g/dL (12.0-15.0); Mean Corp Hgb Conc 32.2 g/dL (32-36); Mean Corpuscular Hgb 27.3 pg (27.0-32.0); Mean Corpuscular Volume 84.8 fL (81-99); Mean Platelet Vol. 11.6 fl (6.2-12.0); Platelet Count 119 K/mm3 (150-450); RBC Distribution Width CV 14.6 % (11.6-14.6); RBC Distribution Width SD 44.6 fl (35.1-43.9); Red Blood Count 5.93 M/mm3 (4.2-5.4)
[2023-09-18 15:49] LABS: Anion Gap 7 (5-15); BUN 13 mg/dL (7-18); Calcium,Total 9.5 mg/dL (8.5-10.1); Chloride 105 mmol/L (98-107); Creatinine, Serum 0.81 mg/dL (0.55-1.02); EST Glomerular Filtration Rate 71 mL/min (>60); Est Glom Filt Rate - Afr Amer 86 mL/min (>60); Glucose 135 mg/dL (74-106); Potassium 3.6 mmol/L (3.5-5.1); Sodium Level 137 mmol/L (136-145)
== END | disposition home or self-care (01) ==
LOC: LAB 13:24
PROVIDERS: PCP Family Medicine; Referring Provider Internal Medicine Cardiovascular Disease; Visit Provider Internal Medicine Cardiovascular Disease
DX: I10 Essential (primary) hypertension (principal); I48.91 Unspecified atrial fibrillation; D69.3 Immune thrombocytopenic purpura; E78.00 Pure hypercholesterolemia, unspecified
CPT/HCPCS: 36415; 80048; 85027

== ENCOUNTER 2024-01-09 20:10 | Emergency (ER) | payer MEDICARE, OTHER, SELFPAY ==
[2024-01-09 20:13] VITALS: BP 165/81; PULSE 88; RESP 16; TEMP 36.7; O2SAT 98; BMI 28.0
--- NOTE | 2024-01-09 20:25 | EKG12_ITS ---
Test Reason : DYSRHYTHMIA Blood Pressure : / mmHG Vent. Rate : 097 BPM Atrial Rate : 000 BPM P-R Int : 000 ms QRS Dur : 080 ms QT Int : 336 ms P-R-T Axes : 000 -49 -05 degrees QTc Int : 426 ms Atrial fibrillation Left axis deviation Low voltage QRS Inferior infarct , age undetermined Abnormal ECG Confirmed by TIMO WINTER, KECIA ([id number]), scientific publications editor BRAN JACKSON ([id number]) on 01/15/2024 10:40:30 A M Referred By: Confirmed By:YAIMA GREENWOOD MD
--- NOTE | 2024-01-09 20:34 | EX.ED.VIS.PS ---
HPI HPI - Psych History of Present Illness Chief Complaint: Mental Health Narrative Narrative: 83-year-old female past medical history of hypertension, atrial fibrillation, on apixaban, presents with her family because of reported suicidal ideation, homicidal ideation, and confusion. Patient denies all of this. Her daughter relates history that patient's was in the hospital previously, and they had to stay with her because she could not live alone. She was diagnosed with mild cognitive impairment by her primary care provider, and started on medication for Alzheimer's type dementia. She has only been on it for a week or so. Her family relates history that she becomes agitated. She is confused and will walk outside towards the mailbox. They report that she had had suicidal ideation and was homicidal towards her grandson, threatening to hit him. They present her for psychiatric evaluation because of worsening confusion/dementia, and aggressive behavior. [facility] Medical History Dementia Non-smoker Atrial fibrillation Atrial fibrillation with rapid ventricular response Secondary polycythemia Chronic ITP (idiopathic thrombocytopenia) Hypertension Osteoarthritis High cholesterol Home Medications ?Medication ?Instructions ?Recorded ?Last Taken ?Type metoprolol succinate 200 mg 200 mg PO DAILY BLOOD PRESSURE 05/21/23 Unknown History tablet,extended release 24 hr diltiazem HCl 120 mg 120 mg PO DAILY #30 caps 05/23/23 Unknown Rx capsule,extended release 24 hr (Cartia XT) amlodipine 2.5 mg tablet 2.5 mg PO BID 01/09/24 Unknown History cholecalciferol (vitamin D3) 50 50 mcg PO DAILY 01/09/24 Unknown History mcg (2,000 unit) tablet (D3 DOTS) folic acid 1 mg tablet 1 mg PO DAILY 01/09/24 Unknown History mirtazapine 15 mg tablet 15 mg PO QHS 01/09/24 Unknown History [id number] PO DAILY 01/09/24 Unknown History potassium chloride 20 mEq 20 meq PO DAILY 01/09/24 Unknown History tablet,extended release potassium gluconate PO DAILY 01/09/24 Unknown History Allergy/AdvReac Type Severity Reaction Status Date / Time No Known Allergies Allergy Verified 01/09/24 20:16 Social History Smoking Status: Never smoker alcohol intake: never substance use type: does not use caffeine: Yes Type: coffee Number of servings: 3 ROS ROS ED ROS Narrative Constitutional: No fever, no chills. HEENT: No sore throat. No neck pain. No loss of vision. No rhinorrhea. Cardiovascular: No chest pain. No palpitations. No pedal edema. Respiratory: No cough, no shortness of breath. Abdominal: No abdominal pain. No nausea. No vomiting. Genitourinary: No dysuria. No hematuria. Musculoskeletal: No myalgias. No arthralgias. Neurologic: No headaches. No dizziness. No lightheadedness. Skin: No rash. No change in color. Psychiatric: No depression. No anxiety. According to patient, denies suicidal ideation or homicidal ideation but family reports of both. Reported aggressive behavior from family. EXAM Physical Exam Narrative Exam Narrative: Afebrile. Vital signs noted. HEENT: Normocephalic. Atraumatic. PERRL, EOMI. Neck soft and supple. No point tenderness or step off. Cardiovascular: Regular rate and rhythm. No murmurs, rubs, or gallops appreciated. Respiratory: No tachypnea. Lungs clear to auscultation bilaterally. Gastrointestinal: Abdomen soft, nontender, with normoactive bowel sounds. No rebound or guarding. Neurological: Awake. Alert. Nonfocal, nonlateralizing. Consistent with mild cognitive impairment. Skin: No rash. Normal color. No pallor. Musculoskeletal: No pedal edema. Full range of motion extremities. Psychiatric: Denies suicidal ideation or homicidal ideation, intermittently angry with family for bringing her here. Const Vital Signs: 01/09/24 20:13 01/09/24 21:12 01/09/24 22:12 Temperature 98.0 F Temperature Source Oral Pulse Rate 88 98 74 Respiratory Rate 16 16 16 Blood Pressure 165/81 H 128/65 H 136/97 H Blood Pressure Mean 109 86 110 Pulse Ox 98 99 97 Oxygen Delivery Method Room Air Room Air Room Air 01/09/24 23:00 01/10/24 00:00 01/10/24 01:00 Temperature Temperature Source Pulse Rate 98 70 68 Respiratory Rate 16 16 18 Blood Pressure 145/74 H 135/80 H 148/71 H Blood Pressure Mean 97 98 96 Pulse Ox 98 95 99 Oxygen Delivery Method Room Air Room Air Room Air MDM MDM MDM Narrative Medical decision making narrative: The differential diagnosis would be UTI versus dementia exacerbation. Medical screening labs will be obtained. EKG was obtained and interpreted by myself independently as atrial fibrillation that is rate controlled at [address] changes. No STEMI. I reviewed her laboratory work and she has normal white count of 10.8, hemoglobin slightly hemoconcentrated at 16.4 with hematocrit 49.5, platelet count normal at 163. CMP is remarkable for glucose of 108 with a normal BUN of 11 and creatinine 0.88. Sodium normal at 137 and potassium 4.0. LFTs show slight elevation of ALT at 59 which I think is nonspecific. Urinalysis is negative for infection. I do not feel antibiotics are indicated. Additionally urine for drugs of abuse is negative. Alcohol also negative. At this point in time, I do feel she is medically cleared for evaluation by crisis. At this point in time, patient still pending evaluation by crisis. There is a possibility that this could be considered ongoing dementia. Family is aware of this. Patient will be signed out for final disposition. Disposition is pending. She is in stable condition. History & Record Review Discussion w/independent historian: Patient and Family (Daughter) Additional record(s) reviewed:: Prior ED visit Lab Data Attestation: I reviewed the patient's lab results. Labs: Laboratory Results - last 24 hr 01/09/24 01/09/24 20:43 20:49 WBC 10.8 RBC 5.96 H Hgb 16.4 H Hct 49.5 H MCV 83.1 MCH 27.5 MCHC 33.1 RDW Std Deviation 45.1 H RDW Coeff of [place] 14.9 H Plt Count 163 MPV 10.4 Immature Gran % (Auto) 0.500 Neut % (Auto) 61.1 Lymph % (Auto) 19.3 [place] % (Auto) 15.1 H Eos % (Auto) 2.9 Baso % (Auto) 1.1 H Absolute Neuts (auto) 6.6 Absolute Lymphs (auto) 2.08 Nucleated RBC % 0 Differential Comment SCANNED Sodium 137 Potassium 4.0 Chloride 104 Carbon Dioxide 25.0 Anion Gap 8 BUN 11 Creatinine 0.88 Estim Creat Clear Calc 42.72 Est GFR (MDRD) Af Amer 78 Est GFR (MDRD) Non-Af 64 BUN/Creatinine Ratio 12.4 Glucose 108 H Calcium 9.4 Total Bilirubin 0.60 AST 32 ALT 59 H Alkaline Phosphatase 93 Total Protein 6.7 Albumin 3.5 Globulin 3.2 Albumin/Globulin Ratio 1.1 Urine Color Yellow Urine Clarity Clear Urine pH 6.5 Ur Specific [place] 1.010 Urine Protein Negative Urine Glucose (UA) Normal Urine Ketones Negative Urine Occult Blood Negative Urine Nitrite Negative Urine Bilirubin Negative Urine Urobilinogen Normal Ur Leukocyte Esterase 25 H Urine RBC 0 SEEN Urine WBC 0 SEEN Ur Squamous Epith Cells 0 SEEN Urine Bacteria 0 SEEN Urine Mucus 0 SEEN Urine Opiates Screen NEGATIVE Urine Methadone Screen NEGATIVE Ur Barbiturates Screen NEGATIVE Ur Phencyclidine Scrn NEGATIVE Ur Amphetamines Screen NEGATIVE MDMA (Ecstasy) Screen NEGATIVE U Benzodiazepines Scrn NEGATIVE Urine Cocaine Screen NEGATIVE U Cannabinoids Screen NEGATIVE Ur Drug Screen Comment Ethyl Alcohol < 3.0 Discharge Plan Triage Chief Complaint: Mental Health ED Provider: Rajinder Fernandez Dx/Rx/DC Orders Prescriptions: No Action metoprolol succinate 200 mg tablet extended release 24 hr 200 mg PO DAILY diltiazem HCl [Cartia XT] 120 mg capsule,extended release 24hr 120 mg PO DAILY Qty: 30 0RF amlodipine 2.5 mg tablet 2.5 mg PO BID potassium chloride 20 mEq tablet extended release 20 meq PO DAILY mirtazapine 15 mg tablet 15 mg PO QHS cholecalciferol (vitamin D3) [D3 DOTS] 50 mcg (2,000 unit) tablet 50 mcg PO DAILY folic acid 1 mg tablet 1 mg PO DAILY potassium gluconate PO DAILY [id number] [Centrum Silver Men] PO DAILY Primary Care Provider: Francisco Lynch Referrals: Francisco Lynch MD [Primary Care Provider] - Print Language: Amharic
--- NOTE | 2024-01-09 20:42 | ED.RN ---
Per Jim patient is not suicidal and does not require a sitter.
[2024-01-09 20:56] LABS: Bacteria 0 SEEN /hpf (None Seen); Mucous, Urine 0 SEEN /hpf (<or=2+); Red Blood Cells-Urine 0 SEEN /hpf (0-5); Squamous Epithelial Cells - UA 0 SEEN /hpf (5-10); White Blood Cells 0 SEEN /hpf (0-5)
[2024-01-09 21:01] LABS: Absolute Lymphocyte Count 2.08 X10^3/uL (0.83-4.51); Absolute Neutrophil Count 6.6 X10^3/uL (2.0-7.7); Basophil# 0.12 X10^3/uL; Basophil% 1.1 % (0-1); Eosinophil# 0.31 X10^3/uL; Eosinophils% 2.9 % (0-5); Hematocrit 49.5 % (37-47); Hemoglobin 16.4 g/dL (12.0-15.0); Lymphocyte # 2.08 X10^3/ul (0.83-4.51); Lymphocyte % 19.3 % (19-41); Mean Corp Hgb Conc 33.1 g/dL (32-36); Mean Corpuscular Hgb 27.5 pg (27.0-32.0); Mean Corpuscular Volume 83.1 fL (81-99); Mean Platelet Vol. 10.4 fl (6.2-12.0); Monocyte# 1.63 X10^3/uL; Monocyte% 15.1 % (0-10); NRBC Flagged by Analyzer 0 % (0-5); Neutrophil # 6.61 X10^3/uL (2.7-7.7); Neutrophil % 61.1 % (47-70); POSITIVE DIFFERENTIAL YES; Platelet Count 163 K/mm3 (150-450); RBC Distribution Width CV 14.9 % (11.6-14.6); RBC Distribution Width SD 45.1 fl (35.1-43.9); Red Blood Count 5.96 M/mm3 (4.2-5.4); White Blood Count 10.8 K/mm3 (4.4-11.0)
[2024-01-09 21:07] LABS: Differential Indicated SCAN CRITERIA MET
[2024-01-09 21:08] LABS: Color, Urine Yellow (Yellow); Glucose, Dipstick Normal (Normal); Ketone-Dipstick Negative (Negative); Leukocyte Esterase-Dipstick 25 /ul (Negative); Nitrite-Dipstick Negative (Negative); Occult Blood-Urine Negative /ul (Negative); Protein-Dipstick Negative (Negative); Urine Bilirubin Dipstick Negative (Negative); Urine Clarity Clear (Clear); Urine Urobilinogen Normal (Normal); Urine pH 6.5 (5.0 - 8.0)
[2024-01-09 21:12] VITALS: BP 128/65; PULSE 98; RESP 16; O2SAT 99
[2024-01-09 21:13] LABS: Amphetamine Urine VISTA NEGATIVE (<1000 ng/mL); Barbiturate Urine VISTA NEGATIVE (< 200 ng/mL); Benzodiazepine Urine VISTA NEGATIVE (< 200 ng/mL); Cocaine Urine VISTA NEGATIVE (< 300 ng/mL); Ecstacy Urine VISTA NEGATIVE (< 500 ng/mL); Methadone Urine VISTA NEGATIVE (< 300 ng/mL); PCP Urine VISTA NEGATIVE (< 25 ng/mL); THC Urine VISTA NEGATIVE (< 50 ng/mL); Vista UDS pH Range 6
[2024-01-09 21:16] LABS: Alcohol, Blood (Medical)-Serum < 3.0 mg/dL
[2024-01-09 21:20] LABS: ALB/GLOB Ratio 1.1 RATIO (0.9-2.4); AST(SGOT) 32 U/L (15-37); Alanine Aminotransfer ALT/SGPT 59 U/L (13-56); Albumin, Serum 3.5 g/dL (3.2-5.0); Alkaline Phosphatase 93 U/L (45-117); Anion Gap 8 (5-15); BUN 11 mg/dL (7-18); BUN/Creat Ratio 12.4 RATIO (10-20); Calcium,Total 9.4 mg/dL (8.5-10.1); Chloride 104 mmol/L (98-107); Creatinine, Serum 0.88 mg/dL (0.55-1.02); EST Glomerular Filtration Rate 64 mL/min (>60); Est Glom Filt Rate - Afr Amer 78 mL/min (>60); Estimated Creatinine Clearance 42.72 ml/min; Globulin 3.2 g/dL (2.2-4.2); Glucose 108 mg/dL (74-106); Protein, Total 6.7 g/dL (6.4-8.2); Sodium Level 137 mmol/L (136-145)
[2024-01-09 21:53] LABS: Differential Comment SCANNED
[2024-01-09 22:12] VITALS: BP 136/97; PULSE 74; RESP 16; O2SAT 97
[2024-01-09 23:00] VITALS: BP 145/74; PULSE 98; RESP 16; O2SAT 98
[2024-01-10] VITALS: BP 135/80; PULSE 70; RESP 16; O2SAT 95
[2024-01-10 01:00] VITALS: BP 148/71; PULSE 68; RESP 18; O2SAT 99
[2024-01-10 02:00] VITALS: BP 140/70; PULSE 68; RESP 16; O2SAT 99
[2024-01-10 04:46] VITALS: BP 137/69; PULSE 82; RESP 16; TEMP 36.7; O2SAT 97
== END 2024-01-10 04:47 | disposition home or self-care (01) ==
PROVIDERS: Emergency Provider Emergency Medicine; PCP Family Medicine; Visit Provider Emergency Medicine
DX: F99 Mental disorder, not otherwise specified (principal); F02.80 Dementia in other diseases classified elsewhere, unspecified severity, without behavioral disturbance, psychotic disturbance, mood disturbance, and anxiety; G30.9 Alzheimer's disease, unspecified; I48.91 Unspecified atrial fibrillation; E78.00 Pure hypercholesterolemia, unspecified; I10 Essential (primary) hypertension; Z79.01 Long term (current) use of anticoagulants; R45.851 Suicidal ideations; Z79.899 Other long term (current) drug therapy; R45.850 Homicidal ideations
CPT/HCPCS: 80053; 80307; 81001; 82077; 85025; 93005; 99284; A4216

== ENCOUNTER → 2024-11-05 | Outpatient (CLI) | payer MEDICARE, OTHER, SELFPAY ==
[2024-11-05 18:50] LABS: ALB/GLOB Ratio 1.1 RATIO (0.9-2.4); AST(SGOT) 40 U/L (<=31); Alanine Aminotransfer ALT/SGPT 177 U/L (<=34); Albumin, Serum 3.6 g/dL (3.4-4.8); Alkaline Phosphatase 326 U/L (35-104); Anion Gap 11 (5-15); BUN 11 mg/dL (4-19); BUN/Creat Ratio 12.7 RATIO (10-20); Calcium,Total 9.2 mg/dL (7.6-11.0); Carbon Dioxide 25.3 mmol/L (21.0-32.0); Chloride 99 mmol/L (98-108); EST Glomerular Filtration Rate 62 (>60); Globulin 3.2 g/dL (2.2-4.2); Glucose 114 mg/dL (70-99); Protein, Total 6.7 g/dL (5.9-8.4); Sodium Level 135 mmol/L (133-145); Total Bilirubin 1.93 mg/dL (0.00-1.30)
== END | disposition home or self-care (01) ==
LOC: LABSPEC 15:01
PROVIDERS: PCP Family Medicine; Visit Provider Family Medicine
DX: R41.0 Disorientation, unspecified (principal); R82.2 Biliuria
CPT/HCPCS: 36415; 80053

== ENCOUNTER 2024-11-07 11:06 | Emergency (ER) | payer MEDICARE, OTHER, SELFPAY ==
[2024-11-07 11:07] VITALS: BP 121/67; PULSE 103; RESP 16; TEMP 36.4; O2SAT 99; BMI 26.2
[2024-11-07 11:23] VITALS: BP 110/62; PULSE 76; RESP 18; TEMP 36.4; O2SAT 96
--- NOTE | 2024-11-07 11:25 | EDS_ITS ---
HPI <JAMES Jonas - Last Filed: 11/07/24 13:25> History of Present Illness Chief Complaint: Complaint Narrative Narrative: 84-year-old female with PMH of HTN, HLD, A-fib, ITP, Alzheimer's dementia was brought in by her family due to abnormal blood work. Patient lives alone but has 24/7 care from her family members. She seemed more confused 4 days ago and they took her to express care and she was diagnosed with a UTI and started on antibiotics. The provider noted she looked mildly jaundiced and she had blood work done the next day and the provider called the family with the results stating her bilirubin was elevated and she should be evaluated. She has a history of fatty liver diagnosed about 2 years ago. Patient complains of fatigue but has been able to get up and get around her home. She has had no fever or illness. No chest pain or abdominal pain or vomiting or diarrhea. PFSH <JAMES Jonas - Last Filed: 11/07/24 13:25> [facility] Medical History (Reviewed 10/20/24 @ 15:35 by Maria Fernanda Sanford DNA SEQUENCING ASSOCIATE, DNA SEQUENCING ASSOCIATE-C) Dementia Non-smoker Atrial fibrillation Atrial fibrillation with rapid ventricular response Secondary polycythemia Chronic ITP (idiopathic thrombocytopenia) Hypertension Osteoarthritis High cholesterol Home Medications ?Medication ?Instructions ?Recorded ?Last Taken ?Type metoprolol succinate 200 mg 200 mg PO DAILY BLOOD PRES SURE 05/21/23 11/07/24 History tablet,extended release 24 hr cholecalciferol (vitamin D3) 50 50 mcg PO DAILY 11/07/24 History mcg (2,000 unit) tablet (D3 DOTS) potassium chloride 20 mEq 20 meq PO DAILY 01/09/2404/24 History tablet,extended release diltiazem HCl 120 mg 120 mg PO DAILY #90 caps 08/2411/07/24 Rx capsule,extended release 24 hr (Cartia XT) apixaban 5 mg tablet (Eliquis) 5 mg PO BID #180 tabs 0 10/02/24 11/07/24 Rx atorvastatin 20 mg tablet (Lipitor) 20 mg PO QDAY 09/3011/06/24 History donepezil 10 mg tablet 10 mg PO QDAY 10/20/2411/07 History melatonin 5 mg capsule 5 mg PO DAILY 11/07/2411/06 History mirtazapine 30 mg tablet 30 mg PO QHS 11/07/24 History nitrofurantoin 1 cap PO BID 11/07/24 History monohydrate/macrocrystals 100 mg capsule Allergy/AdvReac Type Severity Reaction Status Date / Time No Known Allergies Allergy Verified 11/07/24 11:07 Social History (Updated 11/07/24 @ 11:19 by Kailey Almaguer) housing: house Smoking Status: Never smoker alcohol intake: never substance use type: does not use caffeine: Yes Type: coffee Number of servings: 3 ROS <JAMES Jonas - Last Filed: 11/07/24 13:25> ROS ED ROS Narrative Constitutional: Positive for malaise. Negative for fever, chills. CVS: Negative for chest pain, syncope. Respiratory: Negative for shortness of breath, cough. GI: Negative for abdominal pain, nausea, vomiting, diarrhea. : Negative for dysuria. EXAM <JAMES Jonas - Last Filed: 11/07/24 13:25> Physical Exam Narrative Exam Narrative: CONST: Patient sitting in no acute distress. EYES: Mild scleral icterus. NECK: Normal inspection. RESP: No respiratory distress, CTAB. CVS: Regular rate and rhythm, no murmur, no gallop. ABD: Soft and nontender, no guarding or rebound, nondistended. SKIN: Color normal, no rash, warm, dry, intact. EXTREMITIES: Normal appearance, no pedal edema. NEURO: Alert to self and place, states she is about 89 years old, follows commands, moving all extremities. PSYCH: Normal affect. Const Vital Signs: 11/07/24 11:07 11/07/24 11:23 11/07/24 12:15 Temperature 97.6 F L 97.6 F L 97.9 F Temperature Source Oral Oral Oral Pulse Rate 103 H 76 65 Respiratory Rate 16 18 17 Blood Pressure 121/67 H 110/62 108/78 Blood Pressure Mean 85 78 88 Pulse Ox 99 96 98 Oxygen Delivery Method Room Air Room Air 11/07/24 13:00 11/07/24 13:23 Temperature 98.4 F 98.4 F Temperature Source Oral Pulse Rate 80 80 Respiratory Rate 18 18 Blood Pressure 120/78 120/78 Blood Pressure Mean 92 92 Pulse Ox 98 98 Oxygen Delivery Method Room Air <Dr. Issac Martell MD - Last Filed: 11/07/24 16:03> Physical Exam Const Vital Signs: 11/07/24 11:07 11/07/24 11:23 11/07/24 12:15 Temperature 97.6 F L 97.6 F L 97.9 F Temperature Source Oral Oral Oral Pulse Rate 103 H 76 65 Respiratory Rate 16 18 17 Blood Pressure 121/67 H 110/62 108/78 Blood Pressure Mean 85 78 88 Pulse Ox 99 96 98 Oxygen Delivery Method Room Air Room Air 11/07/24 13:00 11/07/24 13:23 Temperature 98.4 F 98.4 F Temperature Source Oral Pulse Rate 80 80 Respiratory Rate 18 18 Blood Pressure 120/78 120/78 Blood Pressure Mean 92 92 Pulse Ox 98 98 Oxygen Delivery Method Room Air MDM <JAMES Jonas - Last Filed: 11/07/24 13:25> [facility] MDM Narrative Medical decision making narrative: History gathered from: Patient and family members 84-year-old female was brought in by her family for evaluation of jaundice and altered mental status. She is also currently taking antibiotics for UTI. She appears well and nontoxic. BP 121/67, HR 103, and otherwise normal vital signs. Clinically she is mildly disoriented but not frankly confused and seems more consistent with Alzheimer's dementia. She has no focal neurological deficits. She has normal cardiopulmonary exam and abdomen is soft, nontender. She has very mild jaundice Differential for painless jaundice includes neoplasm versus fatty liver. WBC is 13.4. Hemoglobin 15.4 which appears to be her baseline. Platelets 354. She has normal electrolytes and renal function. Transaminases are slightly elevated but are trending down from 2 days ago. Ammonia levels normal 32.4. Her lactic is 2.4; however she has no urinary tract infection and this could be elevated for different reasons. She is not on metformin. She was treated with IV fluids. CT shows fatty liver and CBD at 0.9 cm which is within the normal range status postcholecystectomy. Since overall workup is unremarkable and transaminases are improving I feel patient can be discharged to follow-up with her primary care doctor. She should finish her antibiotics for UTI. Return precautions were discussed and she was discharged in stable condition. I have personally performed a face to face assessment of the patient and have reviewed the HJONNY Note. I performed a substantive portion of the visit including all aspects of the following. My veras findings include: History is remarkable for abnormal labs, increased confusion patient not a good informant. She has baseline dementia. Exam is remarkable for patient appearing jaundiced. She is disoriented to time which is baseline according to the daughter who is the POA. She does have a living well. There is been no weight gain or weight loss. History is very limited. She had abnormal labs and was told to come to the emergency department. HEENT exam is remarkable for scleral icterus. Trachea is midline. No JVD. Lungs clear to auscultation. Heart is regular. Rate is normal. There is no murmur, gallop or rub. Abdomen soft nontender. No palpable stool mass or abdominal bruit. There is no paraspinal megaly. She has no tenderness on exam. Her neuroexam is nonfocal. Medical Decision Making patient with painless jaundice. She does have a living well. Her daughter is the POA is here. Will discuss CODE STATUS after we have all laboratory results and imaging results. With patient having painless jaundice this may be due to DUMONT, choledocholithiasis, neoplasm. Workup included CT of the abdomen pelvis with IV contrast, appropriate blood work. Ultrasound was not obtained since she is status postcholecystectomy. Other additions or changes: [None] Lab Data Labs: Laboratory Results - last 24 hr 11/07/24 11/07/24 11:32 11:42 WBC 13.4 H RBC 5.34 Hgb 15.4 H Hct 46.8 MCV 87.6 MCH 28.8 MCHC 32.9 RDW Std Deviation 46.1 H RDW Coeff of Prince 14.4 Plt Count 354 MPV 10.6 Immature Gran % (Auto) 2.500 H Neut % (Auto) 67.5 Lymph % (Auto) 14.3 L Ross % (Auto) 12.4 H Eos % (Auto) 1.8 Baso % (Auto) 1.5 H Absolute Neuts (auto) 9.0 H Absolute Lymphs (auto) 1.91 Nucleated RBC % 0 Sodium 135 Potassium 4.5 Chloride 101 Carbon Dioxide 21.1 Anion Gap 13 BUN 13 Creatinine 0.78 Estim Creat Clear Calc 44.63 L Est GFR (MDRD) Non-Af 74 BUN/Creatinine Ratio 16.6 Glucose 126 H Lactic Acid 2.4 H* Calcium 9.5 Total Bilirubin 1.61 H Direct Bilirubin 1.02 H AST 39 H ALT 116 H Alkaline Phosphatase 279 H Ammonia 32.4 Total Protein 7.0 Albumin 3.6 Globulin 3.4 Urine Color Yellow Urine Clarity Clear Urine pH 6.0 Ur Specific [place] 1.015 Urine Protein 15 H Urine Glucose (UA) Normal Urine Ketones Negative Urine Occult Blood Negative Urine Nitrite Negative Urine Bilirubin Negative Urine Urobilinogen 4 H Ur Leukocyte Esterase 25 H Urine RBC 0 SEEN Urine WBC 0-5 SEEN Ur Squamous Epith Cells 0 SEEN Urine Bacteria 0 SEEN Urine Mucus 0 SEEN Radiography Diagnostic Testing: Clinical Impression(s) from Imaging Studies Abdomen/Pelvis CT 11/07/24 11:29 IMPRESSION: 1. Hepatomegaly with fatty infiltration. 2. Common bile duct is prominent measuring 0.9 cm in diameter. No common bile duct stone is seen. 3. Fecal retention in the colon consistent with constipation. 4. Scattered calcified atherosclerotic disease of the aorta, measuring up to 3.4 cm in diameter. Reading Location: [id number] <Dr. Issac Martell MD - Last Filed: 11/07/24 16:03> [facility] Narrative Medical decision making narrative: I have personally performed a face to face assessment of the patient and have reviewed the JHONNY Note. I performed a substantive portion of the visit including all aspects of the following. My veras findings include: History is remarkable for abnormal labs, increased confusion patient not a good informant. She has baseline dementia. Exam is remarkable for patient appearing jaundiced. She is disoriented to time which is baseline according to the daughter who is the POA. She does have a living well. There is been no weight gain or weight loss. History is very limited. She had abnormal labs and was told to come to the emergency department. HEENT exam is remarkable for scleral icterus. Trachea is midline. No JVD. Lungs clear to auscultation. Heart is regular. Rate is normal. There is no murmur, gallop or rub. Abdomen soft nontender. No palpable stool m ass or abdominal bruit. There is no paraspinal megaly. She has no tenderness on exam. Her neuroexam is nonfocal. Medical Decision Making patient with painless jaundice. She does have a living well. Her daughter is the POA is here. Will discuss CODE STATUS after we have all laboratory results and imaging results. With patient having painless jaundice this may be due to DUMONT, choledocholithiasis, neoplasm. Workup included CT of the abdomen pelvis with IV contrast, appropriate blood work. Ultrasound was not obtained since she is status postcholecystectomy. Other additions or changes: [None] History & Record Review Additional record(s) reviewed:: Prior inpatient record, Prior outpatient record, Prior ED visit (Last ER visit was December 2023 for change in mental status. She also was seen and admitted in May 2023 for A-fib with RVR. Dr. Garner's H&P and Dr. Watkins's discharge summaries were reviewed.) and Other (Cardiology office visit authored by Maria Fernanda Sanford was reviewed. This was dated October 20, 2024.) Lab Data Attestation: I reviewed the patient's lab results. Lab results narrative: White count is elevated with no shift. UA is unremarkable. Urine is remarkable for urobilinogen. There is no bilirubin however. UA is otherwise unremarkable. Lactate slight elevated 2.4. Electrolyte panel is unremarkable. Glucose slightly elevated 126 with normal CO2 anion gap. Total bili is down from 2 days ago. Is now 1.61. Direct is 1.02. AST and ALT are slightly elevated at 39 and 116 respectively. Ammonia level was normal at 32.4. Labs: Laboratory Results - last 24 hr 11/07/24 11/07/24 11:32 11:42 WBC 13.4 H RBC 5.34 Hgb 15.4 H Hct 46.8 MCV 87.6 MCH 28.8 MCHC 32.9 RDW Std Deviation 46.1 H RDW Coeff of Prinec 14.4 Plt Count 354 MPV 10.6 Immature Gran % (Auto) 2.500 H Neut % (Auto) 67.5 Lymph % (Auto) 14.3 L Ross % (Auto) 12.4 H Eos % (Auto) 1.8 Baso % (Auto) 1.5 H Absolute Neuts (auto) 9.0 H Absolute Lymphs (auto) 1.91 Nucleated RBC % 0 Sodium 135 Potassium 4.5 Chloride 101 Carbon Dioxide 21.1 Anion Gap 13 BUN 13 Creatinine 0.78 Estim Creat Clear Calc 44.63 L Est GFR (MDRD) Non-Af 74 BUN/Creatinine Ratio 16.6 Glucose 126 H Lactic Acid 2.4 H* Calcium 9.5 Total Bilirubin 1.61 H Direct Bilirubin 1.02 H AST 39 H ALT 116 H Alkaline Phosphatase 279 H Ammonia 32.4 Total Protein 7.0 Albumin 3.6 Globulin 3.4 Urine Color Yellow Urine Clarity Clear Urine pH 6.0 Ur Specific [place] 1.015 Urine Protein 15 H Urine Glucose (UA) Normal Urine Ketones Negative Urine Occult Blood Negative Urine Nitrite Negative Urine Bilirubin Negative Urine Urobilinogen 4 H Ur Leukocyte Esterase 25 H Urine RBC 0 SEEN Urine WBC 0-5 SEEN Ur Squamous Epith Cells 0 SEEN Urine Bacteria 0 SEEN Urine Mucus 0 SEEN Radiography Diagnostic Testing: Clinical Impression(s) from Imaging Studies Abdomen/Pelvis CT 11/07/24 11:29 IMPRESSION: 1. Hepatomegaly with fatty infiltration. 2. Common bile duct is prominent measuring 0.9 cm in diameter. No common bile duct stone is seen. 3. Fecal retention in the colon consistent with constipation. 4. Scattered calcified atherosclerotic disease of the aorta, measuring up to 3.4 cm in diameter. Reading Location: [facility] CT was reviewed by me and report was read. A bile duct of 0.9 cm status postcholecystectomy is within normal range. Discharge Plan Triage Chief Complaint: Complaint ED Midlevel Provider: Teressa Bailey ED Provider: Issac Martell Dx/Rx/DC Orders Clinical Impression: Fatty liver, Abnormal transaminases, Dementia, Sinus tachycardia seen on stripping shovel oiler, Hypertension, High cholesterol Instructions: NAFLD Prescriptions: No Action atorvastatin [Lipitor] 20 mg tablet 20 mg PO QDAY donepezil 10 mg tablet 10 mg PO QDAY metoprolol succinate 200 mg tablet extended release 24 hr 200 mg PO DAILY potassium chloride 20 mEq tablet extended release 20 meq PO DAILY cholecalciferol (vitamin D3) [D3 DOTS] 50 mcg (2,000 unit) tablet 50 mcg PO DAILY mirtazapine 30 mg tablet 30 mg PO QHS nitrofurantoin monohyd/m-cryst 100 mg capsule 1 cap PO BID melatonin 5 mg capsule 5 mg PO DAILY diltiazem HCl [Cartia XT] 120 mg capsule,extended release 24hr 120 mg PO DAILY Qty: 90 3RF Eliquis 5 mg tablet 5 mg PO BID Qty: 180 3RF Primary Care Provider: Francisco Lynch Referrals: Francisco Lynch MD [Primary Care Provider] - Activity Restrictions/Additional Instructions: Her liver enzymes are high but they are better than a few days ago. CT scan shows fatty liver. I recommend she follow-up with her primary care doctor so these can be monitored. It looks like her urine infection is clearing so complete all of the antibiotics as prescribed. Print Language: Yoruba Disposition Disposition: Home, Self Care Discharge Date/Time: 11/07/24 13:34
--- NOTE | 2024-11-07 11:29 | CT_ITS ---
EXAM: CT Abdomen and Pelvis With Intravenous Contrast CLINICAL INDICATION: JAUNDICE TECHNIQUE: Axial computed tomography images of the abdomen and pelvis with intravenous contrast. This CT exam was performed using one or more of the following dose reduction techniques: automated exposure control, adjustment of the mA and/or kV according to patient size, and/or use of iterative reconstruction technique. COMPARISON: No relevant prior studies available. FINDINGS: LUNG BASES: Unremarkable. No mass. No consolidation. ABDOMEN: LIVER: Hepatomegaly with fatty infiltration. GALLBLADDER AND BILE DUCTS: Gallbladder is surgically absent. Common bile duct is prominent measuring 0.9 cm in diameter. No common bile duct stone is seen. PANCREAS: Unremarkable. No mass. No ductal dilation. SPLEEN: Unremarkable. No splenomegaly. ADRENALS: Unremarkable. No mass. KIDNEYS AND URETERS: Unremarkable. No solid mass. No hydronephrosis. STOMACH AND BOWEL: Fecal retention in the colon consistent with constipation. No obstruction. No mucosal thickening. PELVIS: APPENDIX: No findings to suggest acute appendicitis. BLADDER: Unremarkable. No mass. REPRODUCTIVE: Unremarkable as visualized. ABDOMEN and PELVIS: INTRAPERITONEAL SPACE: Unremarkable. No free air. No significant fluid collection. BONES/JOINTS: Multilevel endplate degenerative change and disc disease of the lumbar spine. Moderate superior endplate compression deformity of L3 vertebral body, likely chronic. No dislocation. SOFT TISSUES: Unremarkable. VASCULATURE: Scattered calcified atherosclerotic disease of the aorta, measuring up to 3.4 cm in diameter. No abdominal aortic aneurysm. LYMPH NODES: Unremarkable. No enlarged lymph nodes. CT/Abdomen/Pelvis W IV Cont ONLY IMPRESSION: 1. Hepatomegaly with fatty infiltration. 2. Common bile duct is prominent measuring 0.9 cm in diameter. No common bile duct stone is seen. 3. Fecal retention in the colon consistent with constipation. 4. Scattered calcified atherosclerotic disease of the aorta, measuring up to 3 .4 cm in diameter. Reading Location: [id number]
[2024-11-07] MEDS: 0.9% Normal Saline (1000mL) 1,000 ML 999 ML IV (11:33)
[2024-11-07 11:52] LABS: Bacteria 0 SEEN /hpf (None Seen); Mucous, Urine 0 SEEN /hpf (<or=2+); Red Blood Cells-Urine 0 SEEN /hpf (0-5); Squamous Epithelial Cells - UA 0 SEEN /hpf (5-10)
[2024-11-07 11:57] LABS: Absolute Lymphocyte Count 1.91 X10^3/uL (0.83-4.51); Basophil% 1.5 % (0-1); Eosinophil# 0.24 X10^3/uL; Eosinophils% 1.8 % (0-5); Hematocrit 46.8 % (37-47); Hemoglobin 15.4 g/dL (12.0-15.0); Lymphocyte # 1.91 X10^3/ul (0.83-4.51); Lymphocyte % 14.3 % (19-41); Mean Corp Hgb Conc 32.9 g/dL (32-36); Mean Corpuscular Hgb 28.8 pg (27.0-32.0); Mean Corpuscular Volume 87.6 fL (81-99); Mean Platelet Vol. 10.6 fl (6.2-12.0); Monocyte# 1.66 X10^3/uL; Monocyte% 12.4 % (0-10); NRBC Flagged by Analyzer 0 % (0-5); Neutrophil # 9.04 X10^3/uL (2.7-7.7); Neutrophil % 67.5 % (47-70); POSITIVE DIFFERENTIAL YES; Platelet Count 354 K/mm3 (150-450); RBC Distribution Width CV 14.4 % (11.6-14.6); RBC Distribution Width SD 46.1 fl (35.1-43.9); Red Blood Count 5.34 M/mm3 (4.2-5.4); White Blood Count 13.4 K/mm3 (4.4-11.0)
[2024-11-07 11:58] LABS: Color, Urine Yellow (Yellow); Glucose, Dipstick Normal (Normal); Ketone-Dipstick Negative (Negative); Leukocyte Esterase-Dipstick 25 /ul (Negative); Nitrite-Dipstick Negative (Negative); Occult Blood-Urine Negative /ul (Negative); Protein-Dipstick 15 mg/dl (Negative); Specific Gravity, Urine 1.015 (1.002-1.030); Urine Bilirubin Dipstick Negative (Negative); Urine Clarity Clear (Clear); Urine Urobilinogen 4 mg/dl (Normal)
[2024-11-07 12:00] LABS: Differential Indicated SCAN CRITERIA MET
[2024-11-07 12:04] LABS: White Blood Cells 0-5 SEEN /hpf (0-5)
[2024-11-07 12:15] VITALS: BP 108/78; PULSE 65; RESP 17; TEMP 36.6; O2SAT 98
[2024-11-07 12:38] LABS: Ammonia 32.4 umol/L (11-51)
[2024-11-07 12:38] LABS: AST(SGOT) 39 U/L (<=31); Alanine Aminotransfer ALT/SGPT 116 U/L (<=34); Albumin, Serum 3.6 g/dL (3.4-4.8); Alkaline Phosphatase 279 U/L (35-104); Anion Gap 13 (5-15); BUN 13 mg/dL (4-19); BUN/Creat Ratio 16.6 RATIO (10-20); Bilirubin, Direct 1.02 mg/dL (0.00-0.30); Calcium,Total 9.5 mg/dL (7.6-11.0); Carbon Dioxide 21.1 mmol/L (21.0-32.0); Chloride 101 mmol/L (98-108); Creatinine, Serum 0.78 mg/dL (0.70-1.20); EST Glomerular Filtration Rate 74 (>60); Estimated Creatinine Clearance 44.63 ml/min (50-250); Globulin 3.4 g/dL (2.2-4.2); Glucose 126 mg/dL (70-99); Potassium 4.5 mmol/L (3.3-5.1); Sodium Level 135 mmol/L (133-145); Total Bilirubin 1.61 mg/dL (0.00-1.30)
[2024-11-07 13:00] VITALS: BP 120/78; PULSE 80; RESP 18; TEMP 36.9; O2SAT 98
[2024-11-07 13:00] LABS: Lactic Acid 2.4 mmol/L (0.0-2.0)
[2024-11-07 13:23] VITALS: BP 120/78; PULSE 80; RESP 18; TEMP 36.9; O2SAT 98
[2024-11-07 15:50] LABS: Reflex Lactate? Y
== END 2024-11-07 13:34 | disposition home or self-care (01) ==
PROVIDERS: Physician Assistant; Emergency Provider Emergency Medicine; PCP Family Medicine; Visit Provider Emergency Medicine
DX: R74.8 Abnormal levels of other serum enzymes (principal); D69.3 Immune thrombocytopenic purpura; G30.9 Alzheimer's disease, unspecified; F02.80 Dementia in other diseases classified elsewhere, unspecified severity, without behavioral disturbance, psychotic disturbance, mood disturbance, and anxiety; I48.91 Unspecified atrial fibrillation; R74.01 Elevation of levels of liver transaminase levels; R00.0 Tachycardia, unspecified; N39.0 Urinary tract infection, site not specified; I10 Essential (primary) hypertension; K76.0 Fatty (change of) liver, not elsewhere classified; E78.00 Pure hypercholesterolemia, unspecified; Z90.49 Acquired absence of other specified parts of digestive tract; Z79.01 Long term (current) use of anticoagulants; Z79.899 Other long term (current) drug therapy
CPT/HCPCS: 74177; 80048; 80076; 81001; 82140; 83605; 85025; 96360; 99283; P9612; Q9967; A4216